=== PATIENT | male | born 1950 | race Asian ===

== ENCOUNTER 2018-07-19 06:42 | Day surgery (SDC) | payer MEDICARE, OTHER ==
[~2018-07-19] VITALS: Ht 157.5 cm; Wt 42.0 kg
[~2018-07-19 06:42] MED LIST: ADV500 IH; BUDE10.2 IH; HYDR-4119 PO; LISI-661 PO; MELO-107 PO; METO-391 PO; MONT10TA21 PO; P-EP-31 PO; SIMV-260 PO; UMEC1DIS PO
[2018-07-19] MEDS ORDERED: BENZOCAINE 20% 50 MCG/SPRAY 57 GM TP ONE (06:43)
[2018-07-19] MEDS ORDERED: LIDOCAINE 2% 30 ML JELLY TP ONE (06:43)
[2018-07-19] MEDS ORDERED: LIDOCAINE 4% 50 ML SOLUTION TP ONE (06:43)
[2018-07-19] MEDS ORDERED: SODIUM CHLORIDE 0.9% 0 ML IV ONE (06:46)
[2018-07-19] MEDS ORDERED: SODIUM CHLORIDE 0.9% 1,000 ML IV ONE ×2 (07:00→09:32)
[2018-07-19] MEDS ORDERED: MIDAZOLAM HCL 2 MG/2 ML VIAL ONE (07:50)
[2018-07-19] MEDS ORDERED: FentaNYL CITRATE-PF 100 MCG/2 ML VIAL ONE (07:50)
[2018-07-19] MEDS ORDERED: MethylPREDNISolone SOD SUCC 125 MG/2 ML VIAL IVP ONE (09:45)
[2018-07-19] MEDS ORDERED: MethylPREDNISolone SOD SUCC 125 MG/2 ML VIAL ONE (09:48)
[2018-07-19] MEDS ORDERED: OXYGEN THERAPY IH SCH (20:00)
== END 2018-07-19 11:05 | disposition home or self-care (01) ==
LOC: SURGERY 06:42
PROVIDERS: ATTEND Internal Medicine Critical Care Medicine
DX: J38.4 Edema of larynx (principal); B37.0 Candidal stomatitis; J39.8 Other specified diseases of upper respiratory tract; I10 Essential (primary) hypertension; J45.998 Other asthma; Z87.891 Personal history of nicotine dependence; Z72.89 Other problems related to lifestyle; Z98.41 Cataract extraction status, right eye; Z79.891 Long term (current) use of opiate analgesic; Z79.899 Other long term (current) drug therapy
CPT/HCPCS: 31623; 31624; 71045; 87015; 87070; 87205; 87206; 87220; 88108; 88312; J2250; J2930; J3010; J7030

== ENCOUNTER 2019-01-31 06:40 | Day surgery (SDC) | payer MEDICARE, OTHER ==
[~2019-01-31] VITALS: Ht 157.5 cm; Wt 42.3 kg
[~2019-01-31 06:40] MED LIST changes: +SODIUM CHLORIDE 0.9% 1,000 ML IV ONE
[2019-01-31] MEDS ORDERED: LIDOCAINE 2% 11 ML JELLY TP ONE (06:41)
[2019-01-31] MEDS ORDERED: LIDOCAINE 4% 50 ML SOLUTION TP ONE (06:41)
[2019-01-31] MEDS ORDERED: ALBUTEROL SULFATE 2.5 MG/0.5 ML NEB SOLUTION NEB ONE (06:41)
[2019-01-31] MEDS ORDERED: BENZOCAINE 20% 50 MCG/SPRAY 57 GM TP ONE (06:41)
[2019-01-31] MEDS ORDERED: SODIUM CHLORIDE 0.9% 1,000 ML IV ONE (07:00)
[2019-01-31] MEDS ORDERED: FentaNYL CITRATE-PF 100 MCG/2 ML VIAL ONE (08:04)
[2019-01-31] MEDS ORDERED: MIDAZOLAM HCL 2 MG/2 ML VIAL ONE (08:04)
[2019-01-31] MEDS ORDERED: MethylPREDNISolone SOD SUCC 125 MG/2 ML VIAL IVP ONE (08:45)
[2019-01-31] MEDS ORDERED: MethylPREDNISolone SOD SUCC 125 MG/2 ML VIAL ONE (09:14)
[2019-01-31] MEDS ORDERED: OXYGEN THERAPY IH SCH (20:00)
== END 2019-01-31 10:25 | disposition home or self-care (01) ==
LOC: SURGERY 06:40
PROVIDERS: ATTEND Internal Medicine Critical Care Medicine
DX: J38.4 Edema of larynx (principal); B37.0 Candidal stomatitis; J39.8 Other specified diseases of upper respiratory tract; I10 Essential (primary) hypertension
CPT/HCPCS: 31623; 31624; 71045; 87015; 87070; 87101; 87205; 87206; 87220; 88108; 88312; 94640; J2250; J2930; J3010; J7030